=== PATIENT | male | born 1955 | race Caucasian/White ===

== ENCOUNTER 2017-09-17 10:27 | Day surgery (SDC) | payer MEDICARE ==
[~2017-09-17 10:27] MED LIST: LIDOCAINE 1% PF 2 ML VIAL. ID; ONDANSETRON PF 4 MG/2 ML VIAL. IV; PROCHLORPERAZINE 10 MG/2 ML VIAL. IV; fentaNYL PF VIAL 100 MCG/2 ML VIAL IV
[2017-09-17] MEDS: IV RINGERS,LACTATED 1000ML 1,000 ML IV (11:22)
[2017-09-17] MEDS ORDERED: BUPIVAC MPF-EPI 0.75%-1:200000 30 ML VIAL. (11:37)
[2017-09-17] MEDS ORDERED: BUPIVACAINE 0.25% 50 ML VIAL. (11:37)
[2017-09-17] MEDS ORDERED: PROPOFOL 20 ML IV (11:42)
[2017-09-17] MEDS ORDERED: fentaNYL PF VIAL 100 MCG/2 ML VIAL (11:42)
[2017-09-17] MEDS ORDERED: MIDAZOLAM HCL/PF 2 MG/2 ML VIAL. (11:42)
[2017-09-17] MEDS ORDERED: LIDOCAINE 1% PF 5 ML VIAL. (11:42)
[2017-09-17] MEDS: BUPIVACAINE 0.5% 50 ML VIAL. (12:23)
[2017-09-17] MEDS ORDERED: ePHEDrine PF IN SALINE 50 MG/5 ML DISP.SYRIN IV (12:38)
[2017-09-17] MEDS ORDERED: SEVOFLURANE 61 TO 120 MINUTES. IH (12:39)
[2017-09-17] MEDS: MORPHINE SULFATE 2 MG/ML DISP.SYRIN. IV (13:15)
[2017-09-17] MEDS: HYDROmorphone 2 MG/ML VIAL IV ×2 (13:25→13:35)
[2017-09-17] MEDS: oxyCODONE/APAP 5/325 1 TAB TABLET PO (13:45)
== END 2017-09-17 14:22 | disposition home or self-care (01) ==
LOC: SURG 10:27
DX: G56.03 Carpal tunnel syndrome, bilateral upper limbs (principal); E66.9 Obesity, unspecified; Z68.42 Body mass index [BMI] 45.0-49.9, adult; F17.200 Nicotine dependence, unspecified, uncomplicated; Z86.718 Personal history of other venous thrombosis and embolism; Z87.39 Personal history of other diseases of the musculoskeletal system and connective tissue; Z72.0 Tobacco use
CPT/HCPCS: 64721; C1769; J0690; J1170; J2250; J2270; J2704; J3010; J3490

== ENCOUNTER → 2017-11-29 | Outpatient (CLI) | payer MEDICARE | END | disposition home or self-care (01) | LOC: PNCL 12:19 | DX: M48.07 Spinal stenosis, lumbosacral region (principal); M25.78 Osteophyte, vertebrae; M17.0 Bilateral primary osteoarthritis of knee; E66.9 Obesity, unspecified; Z86.718 Personal history of other venous thrombosis and embolism; Z87.898 Personal history of other specified conditions | CPT/HCPCS: 99213 ==

== ENCOUNTER → 2017-12-06 | Outpatient (CLI) | payer MEDICARE ==
[~2017-12-06] MED LIST changes: +IOHEXOL 180 MG/ML 10 ML VIAL.; -LIDOCAINE 1% PF 2 ML VIAL. ID; -ONDANSETRON PF 4 MG/2 ML VIAL. IV; -PROCHLORPERAZINE 10 MG/2 ML VIAL. IV; -fentaNYL PF VIAL 100 MCG/2 ML VIAL IV; +methylPREDNISolone ACETATE 40 MG/ML VIAL.; +methylPREDNISolone ACETATE 80 MG/ML VIAL.
== END ==
LOC: PNCL 10:02
DX: M51.16 Intervertebral disc disorders with radiculopathy, lumbar region (principal); M48.061 Spinal stenosis, lumbar region without neurogenic claudication; M96.1 Postlaminectomy syndrome, not elsewhere classified
CPT/HCPCS: 62323; J1030; J1040; Q9965

== ENCOUNTER → 2017-12-06 | Outpatient (CLI) | payer MEDICARE | END | disposition home or self-care (01) | LOC: LAB 09:39 | DX: M51.16 Intervertebral disc disorders with radiculopathy, lumbar region (principal); M96.1 Postlaminectomy syndrome, not elsewhere classified; M48.061 Spinal stenosis, lumbar region without neurogenic claudication; Z79.01 Long term (current) use of anticoagulants | CPT/HCPCS: 36415; 85610 ==

== ENCOUNTER → 2017-12-27 | Outpatient (CLI) | payer MEDICARE ==
[2017-12-27 11:05] LABS: PROTHROMBIN TIME PATIENT 12.7 SEC (11.7-14.0)
== END | disposition home or self-care (01) ==
LOC: LAB 10:31
DX: Z79.01 Long term (current) use of anticoagulants (principal); K21.9 Gastro-esophageal reflux disease without esophagitis
CPT/HCPCS: 36415; 85610

== ENCOUNTER → 2018-06-06 | Outpatient (CLI) | payer MEDICARE ==
[2017-09-17 13:45] VITALS: BP 156/79
[~2018-06-06] MED LIST changes: +ACET500T33 PO; +BUPIVACAINE MPF 0.5% 10 ML VIAL for KCIC. IJ ONE; +DOXY100C2 PO; +DUTA0.5C PO; -IOHEXOL 180 MG/ML 10 ML VIAL.; +IOHEXOL 300 MG/ML 50 ML VIAL. INT ART ONE; +LIDOCAINE 1% Multi-Dose 20 ML VIAL. ID ONE; +OXYC-323 PO; +OXYC-411 PO; +OXYC15TA PO; +P EP PO; +RIVA15TA PO; +TAMS0.4C97 PO; +WARF-31 PO; +WARF10TA45 PO; -methylPREDNISolone ACETATE 40 MG/ML VIAL.; +methylPREDNISolone ACETATE 40 MG/ML VIAL. INT ART ONE; -methylPREDNISolone ACETATE 80 MG/ML VIAL.
--- NOTE | 2018-06-07 08:40 | KCIC ---
Therapeutic right shoulder injection using fluoroscopic guidance. HISTORY: Pain. Osteoarthritis. TECHNIQUE The procedure was explained to the patient as were potential risks, including among others infection, bleeding or allergic reaction. All questions were answered. Informed written consent was obtained. The anterior shoulder was prepped and draped in the usual sterile manner. Following administration of local anesthetic, a 22-gauge needle was advanced into the shoulder joint without difficulty. Following negative aspiration, a mixture of 4 cc Omnipaque-300, 2 cc (80 mg) Depo-Medrol, 4 cc 0.5% Marcaine and 4 cc 1% lidocaine were injected without difficulty. Fluoroscopy demonstrates uniform and satisfactory distribution of the injection through the shoulder. The needle was removed. There was good hemostasis at the injection site. The patient left in stable condition without immediate complication. The patient was given postprocedural instructions, instructed to contact us, their physician or the emergency room if there are any complications. A single spot image is obtained. FLUOROSCOPY TIME: 21 seconds Electronically signed by: Patricio Pineda MD (06/07/2018 8:37 AM) [facility]
== END | disposition home or self-care (01) ==
LOC: KCIC 10:06
PROVIDERS: ATTEND Family Medicine
DX: M19.011 Primary osteoarthritis, right shoulder (principal); N40.0 Benign prostatic hyperplasia without lower urinary tract symptoms; K21.9 Gastro-esophageal reflux disease without esophagitis; M48.061 Spinal stenosis, lumbar region without neurogenic claudication; M96.1 Postlaminectomy syndrome, not elsewhere classified; M51.16 Intervertebral disc disorders with radiculopathy, lumbar region; Z79.01 Long term (current) use of anticoagulants; Z98.890 Other specified postprocedural states; Z87.891 Personal history of nicotine dependence; Z79.899 Other long term (current) drug therapy
CPT/HCPCS: 20610; 77002; J1030; Q9967

== ENCOUNTER → 2018-06-20 | Outpatient (CLI) | payer MEDICARE ==
[2017-09-17 13:45] VITALS: BP 156/79
[~2018-06-20] MED LIST changes: -BUPIVACAINE MPF 0.5% 10 ML VIAL for KCIC. IJ ONE; -IOHEXOL 300 MG/ML 50 ML VIAL. INT ART ONE; -LIDOCAINE 1% Multi-Dose 20 ML VIAL. ID ONE; -methylPREDNISolone ACETATE 40 MG/ML VIAL. INT ART ONE
--- NOTE | 2018-06-20 09:45 | RAD ---
Ultrasound-guided right thyroid biopsy, 06/20/2018: History: Right thyroid nodule The outside ultrasound study demonstrated a multinodular thyroid gland with a dominant nodule containing calcifications in the lower pole of the right lobe. Under local anesthesia, aseptic conditions and sonographic guidance a 25-gauge needle was passed into this nodule via an anteromedial approach. 4 separate aspirates were obtained from this nodule in this manner. The materials were sent to pathology for evaluation. The patient tolerated the procedure well and left the department in good condition. The pathology results are pending.
--- NOTE | 2018-06-21 15:07 | PATHOLOGY ---
Note [facility] Accession Number: [id number] TESTS RESULT FLAG UNITS REF RANGE LAB Clinician Provided Cytology Information No. of containers..01 Other (Miscellaneous) Source: RIGHT THYROID DIAGNOSIS: RIGHT THYROID NEGATIVE FOR MALIGNANT CELLS. B[place]ESDA CATEGORY II. SPECIMEN CONSISTS OF ABUNDANT BENIGN FOLLICULAR CELLS, COLLOID AND BLOOD. THE PATTERN IS CONSISTENT WITH ADENOMATOID NODULE. THIS EVALUATION INCLUDES EXANMINATION OF A CELL BLOCK. Pathologist ICD10: 02 E04.1 Signed out by: Ross Benítez MD, Pathologist NPI- [id number] Performed by: Pat Puckett, Steam Generating Powerplant Mechanic ([facility]) Gross description: 01 30ML, COLORLESS, CLEAR /LCS FLAG LEGEND: L-Low Normal,H-High Normal,LL-Alert Low,HH-Alert High <-Panic Low,>-Panic High,A-Abnormal,AA-Critical Abnormal Performed at: [facility] [address] [place] [address] Shubham Lancaster MD, 02 [facility] [address] [place] [address] Ross Benítez MD, Specimen Comment: A courtesy copy of this report has been sent to Specimen Comment: [phone]. Specimen Comment: Report sent to Specimen Comment: A duplicate report has been generated due to demographic updates. Performed at: 01 [facility] [place] [address], [place], [place] [id number] MD Shubham Lancaster MD Phone: [phone]
== END | disposition home or self-care (01) ==
LOC: US 08:32
DX: E04.1 Nontoxic single thyroid nodule (principal)
CPT/HCPCS: 10022; 60300; 76942; 88173; 88305

== ENCOUNTER → 2019-07-17 | Outpatient (CLI) | payer MEDICARE ==
[2017-09-17 13:45] VITALS: BP 156/79
[~2019-07-17] MED LIST changes: -OXYC-323 PO; +OXYC1TAB15 PO
--- NOTE | 2019-07-17 16:26 | KCIC ---
EXAM: Thyroid ultrasound HISTORY: Thyroid nodules status post right benign biopsy in 2018. COMPARISON: 06/20/2018. 04/26/2018. FINDINGS: Sonographic evaluation of the thyroid gland was performed. The right lobe measures 5.3 x 1.9 x 2.1 cm. A heterogeneous nodule at the lower pole status post biopsy measuring 1.6 x 1.1 cm. This appears decreased since the prior study, though the measurement technique is different. Portions are densely calcified. The left lobe measures 6.1 x 2.4 x 2.0 cm. A hyperechoic nodule at the lower pole measures 1.9 x 1.6 x 1.4 cm. The isthmus measures 6 mm. A hypoechoic nodule along left aspect of the isthmus measures 12 x 8 mm. IMPRESSION: 1. The biopsied benign nodule at the right lower pole appears smaller. 2. A hyperechoic nodule in the left lower pole measures slightly larger but is likely benign based on characteristics. Sonographic follow-up could be performed in 6-12 months if there is persistent concern. Electronically signed by: Mejia Jenkins MD (07/17/2019 4:23 PM) [facility]
== END | disposition home or self-care (01) ==
LOC: KCIC US 13:07
PROVIDERS: ATTEND Family Medicine
DX: E04.2 Nontoxic multinodular goiter (principal)
CPT/HCPCS: 76536

== ENCOUNTER → 2021-10-07 | Outpatient (CLI) | payer MEDICARE ==
[2017-09-17 13:45] VITALS: BP 156/79
[~2021-10-07] MED LIST changes: -DOXY100C2 PO; +DOXY100C3 PO; -OXYC-411 PO; -OXYC15TA PO; +OXYC15TA3 PO; +OXYC1TAB20 PO
--- NOTE | 2021-10-07 13:21 | KCIC ---
EXAM: Left back sonogram. HISTORY: Palpable lump. TECHNIQUE: Sonographic imaging of the lower back at the site of palpable concern was performed. COMPARISON: None. FINDINGS: There is a circumscribed nonvascular solid hypoechoic nodule within the subcutaneous fat of the lower back at the site of palpable concern measuring 1.1 cm in maximum dimension. This correspon ds with the site of palpable concern. IMPRESSION: 1.1 cm nodule within the superficial soft tissues of the lower back at the site of palpab le concern, the appearance of which favors a lipoma. Continued clinical follow-up of palpable abnorma lities is recommended. Repeat imaging can be performed if there is continued concern. Electronically signed by: Sujata Colin MD (10/07/2021 1:19 PM) [id number]
== END ==
LOC: KCIC US 12:34
PROVIDERS: ATTEND Family Medicine
DX: R22.2 Localized swelling, mass and lump, trunk (principal)
CPT/HCPCS: 76882